=== PATIENT | female | born 1985 | race Caucasian/White ===

== ENCOUNTER 2023-10-26 10:44 | Day surgery (SDC) | payer OTHER ==
[~2023-10-26] VITALS: Ht 170.2 cm; Wt 85.0 kg
[2023-10-26] VITALS (15 sets, daily range): BP systolic 102–145; BP diastolic 65–90
[~2023-10-26 10:44] MED LIST: AMOX500 PO; ANTOXYBENA OT; BUPR150ER PO; CEPH500 PO; DOXY100 PO; FLUC150A PO; HAIR, SKIN AND1 EAC3 PO; HYDACE5 PO; HYDR120LO TOP; HYDRA25 PO; IBUHYD PO; IBUP400 PO; IBUP600 PO; IBUP800 PO; Klor-Con M1010 MEQ PO; LEVFLO500 PO; LIDO2L MM; LOTREXONE4.5 MG PO; MAGCIT300 PO; MEDR150I; MUPI2TO TOP; NAPR500 PO; NORETHTP; PANT40 PO; PHENA100 PO; PHENA200 PO; PROP10 PO; PSETRI PO; RXHYDACE PO; RXPHEN200 PO; RXSULTRIDS PO; SERT50 PO; SULTRIDS PO; TERB24TC TOP; TRAM50 PO; VITAMIN B125000 MC1 PO; [UNRECOGNIZED DRUG - CODE] PV; [UNRECOGNIZED DRUG - REMARK]
--- NOTE | 2023-10-26 11:14 | NUR ---
Ambulatory in Day Surgery History, Chart, Medications and Allergies reviewed before start of procedure.Pre-Op teaching done. Pt verbalizes understanding. Patient confirms NPO status and agrees with scheduled surgery.
--- NOTE | 2023-10-26 16:47 | NUR ---
POST OP PATOENT FROM PACU @1615, VSS,ON RA SATS 95-97%. 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 HYPOACTIVE BOWEL TONES. SCANT BLOOD ON PERIPAD. BREAUX DRAINGING TO GRAVITY CELAR YELLOW URINE. ORIENTED TO CALL LIGHT, SPOUSE IN ROOM.
--- NOTE | 2023-10-26 23:05 | NUR ---
SUCTIONING PT BBG SUCTIONED, TOLLERATED WELL. THICK WHITE SECRETIONS NOTED. PT REMAINS ON AIRVO @6L FLOW WITH NO BLEED IN. SUBCOSTAL RETRACTIONS NOTED
[2023-10-27 04:09] VITALS: BP 111/69
[2023-10-27 04:48] LABS: BASOPHILS ABSOLUTE AUTO 0.02 K/mm3 (0.00-0.23); BASOPHILS PERCENT AUTO 0 % (0-2); EOSINOPHILS ABSOLUTE AUTO 0.04 K/mm3 (0.00-0.68); EOSINOPHILS PERCENT AUTO 0 % (0-6); Hematocrit 34.2 % (33.0-51.0); Hemoglobin 11.2 g/dL (11.5-16.0); IMMATURE GRAN ABSOLUTE AUTO 0.03 K/mm3 (0.00-0.10); IMMATURE GRAN PERCENT AUTO 0 % (0-1); LYMPHOCYTES ABSOLUTE AUTO 1.28 K/mm3 (0.84-5.20); LYMPHOCYTES PERCENT AUTO 14 % (21-46); MONOCYTES ABSOLUTE AUTO 0.55 K/mm3 (0.16-1.47); MONOCYTES PERCENT AUTO 6 % (4-13); Mean Corpuscular HGB 29.5 pg (26.0-34.0); Mean Corpuscular HGB Conc 32.7 g/dL (31.5-36.5); Mean Corpuscular Volume 90 fL (80-100); Mean Platelet Volume 11.1 fL (9.1-12.4); NEUTROPHILS ABSOLUTE AUTO 7.29 K/mm3 (1.96-9.15); NEUTROPHILS PERCENT AUTO 79 % (41-73); Platelet Count 223 K/mm3 (150-400); RDW Coefficient Variation 11.7 % (11.7-14.2); RDW Standard Deviation 38.1 fL (35.1-46.3); White Blood Cell Count 9.21 K/mm3 (4.00-11.30)
--- NOTE | 2023-10-27 05:38 | NUR ---
SHIFT SUMMARY POD1 LAP HYSTER. X4 LAP SITES ARE C/D/I. VSS. PT SLEPT WELL T/O THE NIGHT. BREAUX REMOVED AROUND 2100, PT HAS BEEN VOIDING SINCE W/O DIFFICULTY. MINIMAL VAGINAL BLEEDING NOTED. MEDICATED PER EMAR FOR PAIN W/ TOLLERABLE RESULTS. TOLLERATING PO INTAKE W/O N/V. PT HAS NOT WANTED TO WEAR ABD BINDER YET, BUT PLANS TO T/O THE DAY. NO ACUTE EVENTS NOTED T/O THE NIGHT. PLAN FOR D/C HOME TODAY
[2023-10-27 07:19] VITALS: BP 114/81
[2023-10-27] MEDS ORDERED: Percocet 5-3251 EACH PO (11:55)
[2023-10-27] MEDS ORDERED: PROM12.5S PO (11:56)
[2023-10-27] MEDS ORDERED: SIME80CH PO (11:57)
--- NOTE | 2023-10-27 12:20 | NUR ---
DISCHARGE NOTE PT DISCHARGED TO HOME, PICKED UP BY HER . MEDICATIONS FAXED TO [facility]. IV'S REMOVED BY FRUIT SPRAYER. ABD BINDER PROVIDED TO THE PT. DISCHARGE INFORMATION AND EDUCATION PROVIDED TO THE PT, ALONG WITH FOLLOW-UP APPOINTMENT INSTRUCTIONS. PERSONAL BELONGINGS RETURNED.
== END 2023-10-27 12:15 | disposition home or self-care (01) ==
LOC: ORSCMMR 10:44 → ORD 12:30 → ORSCMMR 12:30 → SURS 16:12 → ORSCMMR 10-27 12:15 → SURS 10-27 12:15 → ORD 11-24 11:15
PROVIDERS: Obstetrics & Gynecology
PROC: 0UT77ZZ Resection of Bilateral Fallopian Tubes, Via Natural or Artificial Opening (ICD-10-PCS; principal; 2023-10-26 12:30)
PROC: 0UT97ZZ Resection of Uterus, Via Natural or Artificial Opening (ICD-10-PCS; principal; 2023-10-26 12:30)
PROC: 0U5F4ZZ Destruction of Cul-de-sac, Percutaneous Endoscopic Approach (ICD-10-PCS; principal; 2023-10-26 12:30)
DX: N87.0 Mild cervical dysplasia (principal); R87.810 Cervical high risk human papillomavirus (HPV) DNA test positive; N92.0 Excessive and frequent menstruation with regular cycle; N94.6 Dysmenorrhea, unspecified; N80.9 Endometriosis, unspecified; N93.0 Postcoital and contact bleeding; N72 Inflammatory disease of cervix uteri; J45.909 Unspecified asthma, uncomplicated; K21.9 Gastro-esophageal reflux disease without esophagitis; F41.8 Other specified anxiety disorders; Z79.899 Other long term (current) drug therapy; Z87.891 Personal history of nicotine dependence
CPT/HCPCS: 36415; 85025; 86850; 86900; 86901; 88307; A9270; J0690; J1100; J1170; J1885; J2250; J2405; J2704; J3010; J7120